=== PATIENT | female | born 1960 | race Caucasian/White ===

== ENCOUNTER 2018-09-27 18:14 | Inpatient (IN) | payer OTHER ==
[~2018-09-27] VITALS: Ht 160 cm; Wt 70.8 kg
[~2018-09-27 18:14] MED LIST: ETOMIDATE 2 MG/ML 10 ML INJ IV ONE; SUCCINYLCHOLINE CHLORIDE 20 MG/ML 10ML VIAL ONE
--- OUTSIDE RECORDS SUMMARY | 2018-09-27 18:16 | XMS REPORT | Clinical Summary ---
Author Author [facility] Organization [facility] Address Unknown Phone Unavailable Care Team Providers Care Networker Name Role Phone Asked, No Pcp PCP Unavailable Allergies Not on File Medications Not on file Active Problems Not on file Social History Date Tobacco Use Types Packs/Day Years Used Never Assessed Sex Assigned at Date Recorded Not on file Industry Job Start Date Occupation Not on file Not on file Not on file Travel End Travel History Travel Start No recent travel history available. Last Filed Vital Signs Not on file Plan of Treatment Health Maintenance Due Date Last Done Comments MMR VACCINES (1 of 1 - 01/17/1961 Standard series) VARICELLA VACCINES (1 of 01/17/1973 2 - 2-dose adolescent series) CERVICAL CANCER SCREENING 01/17/1981 BREAST CANCER SCREENING 01/17/2010 COLON CANCER SCREENING 01/17/2010 SHINGRIX VACCINE (1 of 2) 01/17/2010 INFLUENZA VACCINE 06/13/2018 HEPATITIS B VACCINES Aged Out No longer eligible based on patient's age to complete this topic IPV VACCINES Aged Out No longer eligible based on patient's age to complete this topic MENINGOCOCCAL VACCINE Aged Out No longer eligible based on patient's age to complete this topic Results Not on fileafter 09/26/2017 Advance Directives Patient has advance care planning documents on file. For more information, amanda skinner contact: Preet Nowak [address] [place] [address]
[2018-09-27 19:11] LABS: BASOPHILS # (AUTO) 0.1 (0.0-0.1); BASOPHILS % 0.6 % (0.0-1.0); EOSINOPHILS # (AUTO) 0.1 (0.0-0.4); EOSINOPHILS % 0.7 % (0.0-6.0); HEMOGLOBIN 12.7 g/dL (12.0-16.0); LYMPHOCYTES # (AUTO) 3.5 (1.0-3.2); LYMPHOCYTES % 22.5 % (18.0-39.1); MEAN CORPUSCULAR HEMOGLOBIN 28.9 pg (28-32); MEAN CORPUSCULAR HGB CONC 34.3 g/dL (31-35); MEAN CORPUSCULAR VOLUME 84.3 fL (81-99); MONOCYTES # (AUTO) 1.1 (0.2-0.8); MONOCYTES % 6.8 % (4.4-11.3); NEUTROPHILS # (AUTO) 9.6 (2.1-6.9); NEUTROPHILS % 61.5 % (38.7-80.0); PLATELET COUNT 221 x10e3/uL (140-360); RED BLOOD COUNT 4.39 x10e6/uL (3.6-5.1); RED CELL DISTRIBUTION WIDTH 14.3 % (11.7-14.4)
[2018-09-27] MEDS ORDERED: SODIUM CHLORIDE 0.9% 1000ML 1,000 ML ONE ×2 (19:12→19:45)
[2018-09-27] MEDS ORDERED: VANCOMYCIN 1GM/NS 250 ML 250 ML IV STA (19:14)
[2018-09-27 19:17] LABS: INR 0.98; PROTHROMBIN TIME 13.9 seconds (11.9-14.5)
[2018-09-27 19:19] LABS: PARTIAL THROMBOPLASTIN TIME 22.6 seconds (23.8-35.5)
[2018-09-27 19:28] LABS: ALANINE AMINOTRANSFERASE 47 IU/L (0-55); ALBUMIN 3.8 g/dL (3.5-5.0); ALBUMIN/GLOBULIN RATIO 1.1 (0.8-2.0); ALKALINE PHOSPHATASE 319 IU/L (40-150); AMYLASE 94 U/L (25-125); ANION GAP 20.4 mmol/L (8-16); BLOOD UREA NITROGEN 54 mg/dL (7-26); BUN/CREATININE RATIO 23 (6-25); CARBON DIOXIDE 22 mmol/L (22-29); CHLORIDE 101 mmol/L (98-107); CREATINE KINASE 107 IU/L (29-168); CREATININE, SERUM 2.33 mg/dL (0.57-1.11); EST GLOMERULAR FILTRATION RATE 21 ML/MIN (60-); GLUCOSE 130 mg/dL (74-118); LIPASE 64 U/L (8-78); MAGNESIUM 1.8 MG/DL (1.3-2.1); SODIUM 141 mmol/L (136-145)
--- NOTE | 2018-09-27 19:30 | Diagnostic Imaging Report ---
EXAMINATION: CHEST SINGLE (PORTABLE) INDICATION: Back pain. COMPARISON: None FINDINGS: TUBES and LINES: None. LUNGS: Lungs are well inflated. Lungs are clear. There is no evidence of pneumonia or pulmonary edema. PLEURA: No pleural effusion or pneumothorax. HEART AND MEDIASTINUM: The cardiomediastinal silhouette is unremarkable. BONES AND SOFT TISSUES: No acute osseous lesion. Soft tissues are unremarkable. UPPER ABDOMEN: No free air under the diaphragm. IMPRESSION: No acute thoracic abnormality. Signed by: Dr. Bahman Dobbins M.D. on 09/27/2018 7:27 PM
[2018-09-27 19:31] LABS: CALCIUM 16.5 mg/dL (8.4-10.2); POTASSIUM 2.4 mmol/L (3.5-5.1)
--- NOTE | 2018-09-27 19:33 | Diagnostic Imaging Report ---
EXAMINATION: Head CT without contrast. HISTORY:Altered mental status. COMPARISON:None. TECHNIQUE: Multidetector axial images were obtained from the foramen magnum to the vertex without contrast. The images were reconstructed using brain and bone algorithms. Thin section brain images were reformatted into coronal and sagittal planes. Dose modulation, iterative reconstruction, and/or weight based adjustment of the mA/kV was utilized to reduce the radiation dose to as low as reasonably achievable. Intravenous contrast: None IMAGE QUALITY: Acceptable. FINDINGS: Skull/scalp: No lytic or blastic. lesions. No surgical changes. Parenchyma: No abnormal density. No acute hemorrhage, mass or acute major vascular territorial infarct. Arteries: No density suggestive of thrombosis. Dural sinuses: No abnormal density suggestive of thrombosis. Ventricles: No hydrocephalus or displacement. Extra-axial spaces: No abnormal density. Brain volume: Normal for age. Craniocervical junction: No mass, Chiari malformation, or basilar invagination. Sella: No mass. Paranasal/mastoid sinuses: Imaged portions unremarkable. IMPRESSION: No intracranial abnormality. Signed by: Dr. Yazmin Flores M.D. on 09/27/2018 7:30 PM
[2018-09-27] MEDS ORDERED: POTASSIUM CHLORIDE 10MEQ/100ML 100 ML IV ONE (20:00)
[2018-09-27] MEDS ORDERED: MIDAZOLAM HCL 5 MG/ML VIAL IV PRN (20:00)
[2018-09-27] MEDS ORDERED: SUCCINYLCHOLINE CHLORIDE 20 MG/ML 10ML VIAL IV STA (20:06)
[2018-09-27] MEDS ORDERED: ETOMIDATE 2 MG/ML 10 ML INJ IV STA (20:06)
[2018-09-27] MEDS ORDERED: POTASSIUM CHLORIDE 20MEQ/100ML 100 ML ONE (20:09)
[2018-09-27 20:10] LABS: LYMPHOCYTES % (MANUAL) 14 % (19-48); MONOCYTES % (MANUAL) 9 % (3.4-9.0); NEUTROPHILS % (MANUAL) 68 % (40-74); NUCLEATED RED BLOOD CELLS 4; PLATELET MORPHOLOGY COMMENT FEW LARGE; RBC MORPHOLOGY COMMENT NORMAL
[2018-09-27 20:11] LABS: PLATELET ESTIMATE ADEQUATE
[2018-09-27] MEDS: CEFEPIME HCL 1 GM VIAL IV SCH (20:20)
[2018-09-27 20:36] LABS: CLARITY,URINE SL CLOUDY (CLEAR); COLOR,URINE YELLOW (YELLOW)
[2018-09-27 20:37] LABS: BILIRUBIN,URINE NEGATIVE (NEGATIVE); KETONES,URINE NEGATIVE (NEGATIVE); LEUKOCYTE ESTERASE ,URINE TRACE (NEGATIVE); NITRITE,URINE NEGATIVE (NEGATIVE); PROTEIN,URINE DIPSTICK NEGATIVE (NEGATIVE); URINE UROBILINOGEN 0.2 mg/dL (0.2 - 1)
[2018-09-27] MEDS: MIDAZOLAM HCL 25 MG in SODIUM CHLORIDE 0.9% 50ML 45 ML IV PRN (20:40)
[2018-09-27] MEDS ORDERED: METOPROLOL TARTRATE INJ 1 MG/ML VIAL IV ONE (20:40)
[2018-09-27] MEDS ORDERED: METOPROLOL TARTRATE INJ 1 MG/ML VIAL ONE (20:41)
[2018-09-27 20:47] LABS: WBC,URINE (MAN) 0-5 /HPF (0-5)
[2018-09-27 20:48] LABS: BACTERIA,URINE MANY /HPF
[2018-09-27] MEDS: FENTANYL CITRATE INJ 2,000 MCG in SODIUM CHLORIDE 0.9% 250ML 210 ML IV PRN (20:50)
[2018-09-27] MEDS ORDERED: FUROSEMIDE INJ 10 MG/ML 4 ML VIAL IV ONE (21:00)
[2018-09-27] MEDS ORDERED: CALCITONIN SALMON 400 IU/2ML VIAL SC ONE (21:15)
[2018-09-27] MEDS: ENOXAPARIN INJ 80 MG/0.8 ML SYR SC SCH (21:16)
[2018-09-27] MEDS: POTASSIUM CHLORIDE 20MEQ/100ML 100 ML IV SCH (21:16)
[2018-09-27 21:17] LABS: ABG HCO3 26 mmol/L (23-28); ABG PCO2 37 mmHg (41-51); ABG PH 7.46 (7.31-7.41); ABG PO2 81 mmHg (80-105)
--- NOTE | 2018-09-27 21:36 | Diagnostic Imaging Report ---
EXAM: CHEST SINGLE (PORTABLE), AP 1 view INDICATION: Intubated, shortness of breath COMPARISON: AP view of the chest September 27, 2018 1901 hrs FINDINGS: LINES/TUBES: Interval placement of endotracheal tube which terminates approximately 7.5 cm above the alyssa. LUNGS: Mild left lower lobe atelectasis. PLEURA: No effusions or pneumothorax. HEART AND MEDIASTINUM: Normal size and contour. BONES AND SOFT TISSUES: No acute findings. IMPRESSION: Interval placement of endotracheal tube which terminates approximately 7.5 cm above the alyssa. This finding was discussed with the ER physician September 27, 2018 at 2130 hours. Signed by: Dr. Kierra Garcia M.D. on 09/27/2018 9:33 PM
[2018-09-27 21:55] LABS: FREE THYROXINE INDEX 1.2898 (1.4-3.8); THYROID STIMULATING HORMONE 0.743 uIU/mL (0.350-4.940)
--- NOTE | 2018-09-27 22:32 | Diagnostic Imaging Report ---
EXAM: CHEST SINGLE (PORTABLE), AP 1 view INDICATION: Endotracheal tube/central line placement COMPARISON: AP view of the chest September 27, 2018 FINDINGS: LINES/TUBES: * Tip of the endotracheal tube is now 2.5 cm above the alyssa. * Interval placement of right internal jugular vein central line with its tip at the expected location of the atriocaval junction. LUNGS: Left lower lobe atelectasis. PLEURA: No effusions or pneumothorax. HEART AND MEDIASTINUM: Normal size and contour. BONES AND SOFT TISSUES: No acute findings. IMPRESSION: * Tip of the endotracheal tube is now 2.5 cm above the alyssa. * Interval placement of right internal jugular vein central line with its tip at the expected location of the atriocaval junction. No pneumothorax. Signed by: Dr. Kierra Garcia M.D. on 09/27/2018 10:28 PM
[2018-09-27] MEDS: SODIUM CHLORIDE 0.9% 1000ML 1,000 ML IV SCH (22:58)
--- OUTSIDE RECORDS SUMMARY | 2018-09-27 23:22 | XMS REPORT ---
Author Author [facility] Address Unknown Phone Unavailable Care Team Providers Care Manager Social Work Name Role Phone Afshna BURNS Unavailable Unavailable Problems This patient has no known problems. Allergies, Adverse Reactions, Alerts This patient has no known allergies or adverse reactions. Medications This patient has no known medications. Results Test Description Test Time Test Comments Text Results Atomic Results Result Comments CHEST SINGLE (PORTABLE) 2018-09-27 22:26:00 [place] [address] Patient Name: DANIELE AYERS MR #: [id number] : 1960 Age/Sex: 58/F Req #: [id number] [facility] Physician: Ordered by: TAIL SUNSHINE MD Report #: [id number] Location: ER Room/Bed: Procedure: [id number] DX/CHEST SINGLE (PORTABLE) Exam Date: Exam Time: REPORT STATUS: Signed EXAM: CHEST SINGLE (PORTABLE), AP 1 view INDICATION: Endo tracheal tube/central line placement COMPARISON: AP view of the chest September 27, 2018 FINDINGS: LINES/TUBES: * Tip of the endotracheal tube is now 2.5 cm above the alyssa. * Interval placement of right internal jugular vein central line with its tip at the expected location of the atriocaval junction. LUNGS: Left lower lobe atelectasis. PLEURA: No effusions or pneumoth orax. HEART AND MEDIASTINUM: Normal size and contour. BONES AND SOFT TISSUES: No acute findings. IMPRESSION: * Tip of the endotracheal tube is now 2.5 cm above the alyssa. * Interval placement of right internal jugular vein central line with its tip at the expected location of the atriocaval junction. No pneumothorax. Signed by: Dr. Stephanie Garcia M.D. on 09/27/2018 10:28 PM Dictated By: STEPHANIE GARCIA MD 27 Transcribed By: AUBREY on 09/27/182227 COPY TO: TALI SUNSHINE MD CHEST SINGLE (PORTABLE) 2018-09-27 21:28:00 [place] [address] Patient Name: DANIELE AYERS MR #: [id number] : 1960 Age/Sex: 58/F Req #: [id number] Adm Physician: Ordered by: TALI SUNSHINE MD Report #: [id number] Location: ER Room/Bed: Procedure: [id number] DX/CHEST SINGLE (PORTABLE) Exam Date: 09/27/18 Exam Time: 2029 REPORT STATUS: Signed EXAM: CHEST SINGLE (PORTABLE), AP 1 view INDICATION: Intubated, shortness of breath COMPARISON: AP view of the chest September 27, 2018 1901 hrs FINDINGS: LINES/TUBES: Interval placement of endotracheal tube which terminates approximately 7.5 cm above the alyssa. LUNGS: Mild left lower lobe atelectasis. PLEURA: No effusions or pneumothorax. HEART AND MEDIASTINUM: Normal size and contour. BONES AND SOFT TISSUES: No acute findings. IMPRESSION: Interval placement of endotracheal tube which terminates approximately 7.5 cm above the alyssa. This finding was discussed with the ER physician September 27, 2018 at 2130 hours. Signed by: Dr. Stephanie Garcia M.D. on 09/27/2018 9:33 PM Dictated By: STEPHANIE GARCIA MD 32 Transcribed By: AUBREY on 09/27/182132 COPY TO: TALI SUNSHINE MD CT BRAIN WO 2018-09-27 19:27:00 [place] [address] Patient Name: DANIELE AYERS MR #: [id number] : 1960 Age/Sex: 58/F Req #: [id number] Adm Physician: Ordered by: WILLIE LANGLEY PHYSICAL THERAPIST Report #: [id number] Location: ER Room/Bed: Procedure: [id number] CT/CT BRAIN WO Exam Date: Exam Time: REPORT STATUS: Signed EXAMINATION: Head CT without contrast. HISTORY:Altered mental status. COMPARISON:None. TECHNIQUE: Multidetector axial images were obtained from the foramen magnum to the vertex without contrast. The images were reconstructed using brain and bone algorithms. Thin section brain images were reformatted into coronal and sagittal planes. Dose modulation, iterative reconstruction, and/or weight based adjustment of the mA/kV was utilized to reduce the radiation dose to as low as reasonably achievable. Intravenous contrast: None IMAGE QUALITY: Acceptable. FINDINGS: Skull/scalp: No lytic or blastic. lesions. No surgical changes. Parenchyma: No abnormal density. No acute hemorrhage, mass or acute major vascular territorial infarct. Arteries: No density suggestive of thrombosis. Dural sinuses: No abnormal density suggestive of thrombosis. Ventricles: No hydrocephalus or displacement. Extra- axial spaces: No abnormal density. Brain volume: Normal for age. Craniocervical junction: No mass, Chiari malformation, or basilar invagination. Sella: No mass. Paranasal/mastoid sinuses: Imaged portions unremarkable. IMPRESSION: No intracranial abnormality. Signed by: Dr. Yazmin Flores M.D. on 09/27/2018 7:30 PM Dictated By: YAZMIN FLORES MD 29 Transcribed By: AUBREY on 09/27/181929 COPY TO: WILLIE LANGLEY NP CHEST SINGLE (PORTABLE) 2018-09-27 19:26:00 [place] [address] Patient Name: DANIELE AYERS MR #: [id number] : 1960 Age/Sex: 58/F Req #: [id number] Adm Physician: Ordered by: WILLIE LANGLEY NP Report #: [id number] Location: ER Room/Bed: Procedure: [id number] DX/CHEST SINGLE (PORTABLE) Exam Date: Exam Time: REPORT STATUS: Signed EXAMINATION: CHEST SINGLE (PORTABLE) INDICATION: Back pain. COMPARISON: None FINDINGS: TUBES and LINES: None. LUNGS: Lungs are well inflated. Lungs are clear. There is no evidence of pneumonia or pulmonary edema. PLEURA: No pleural effusion or pneumothorax. HEART AND MEDIASTINUM: The cardiomediastinal silhouette is unremarkable. BONES AND SOFT TISSUES: No acute osseous lesion. Soft tissues are unremarkable. UPPER ABDOMEN: No free air under the diaphragm. IMPRESSION: No acute thoracic abnormality. Signed by: Dr. Bahman Dobbins M.D. on 09/27/2018 7:27 PM Dictated By: BAHMAN DOBBINS MD, MD 26 Transcribed By: AUBREY on 09/27/181926 COPY TO: WILLIE LANGLEY NP
--- OUTSIDE RECORDS SUMMARY | 2018-09-27 23:22 | XMS REPORT | Clinical Summary ---
Author Author Preet [facility] Organization [facility] Address Unknown Phone Unavailable Care Team Providers Care Medical Staff Director Name Role Phone Asked, No Pcp PCP [...] more information, amanda skinner contact: Preet Nowak [address] [place] [address]
[2018-09-27 23:25] VITALS: BP 140/105
[2018-09-27 23:30] VITALS: BP 143/97
[2018-09-27 23:45] VITALS: BP 140/97
[2018-09-28] VITALS (91 sets, daily range): BP systolic 97–199; BP diastolic 66–132
[2018-09-28] MEDS: MEROPENEM 1GM 100 ML IV SCH ×2 (00:19→05:36)
--- NOTE | 2018-09-28 00:21 | Diagnostic Imaging Report ---
EXAM: CT CHEST, ABDOMEN, PELVIS with IV CONTRAST INDICATION: Low back pain, nausea and vomiting COMPARISON: None TECHNIQUE: The chest, abdomen and pelvis were scanned using a multidetector helical scanner. Coronal and sagittal reformations were obtained. Dose modulation, iterative reconstruction, and/or weight based adjustment of the mA/kV was utilized to reduce the radiation dose to as low as reasonably achievable. Routine protocol performed. IV Contrast: None Oral Contrast: None CTDIvol has been reviewed. It is below the limits set by the Radiation Protocol Committee (RPC). FINDINGS: LUNGS AND AIRWAYS: Endotracheal tube is 1 cm above the alyssa. The major airways are patent. Perihilar bronchial thickening. Bibasilar atelectasis. There are several noncalcified pulmonary nodules. Examples from series 4 include: * Right upper lung 9 mm, image 44 * Right middle lobe 7 mm, image 61 * Left lower lobe 13 mm, image 67 PLEURA: No effusions or pneumothorax HEART, MEDIASTINUM, VESSELS: The heart is within normal size limits. No abnormal pericardial effusion. No thoracic aortic aneurysm. No mediastinal mass or lymphadenopathy. Tip of a right internal jugular vein central line terminates in the distal superior vena cava. LIVER: No masses BILIARY: The gallbladder is unremarkable. No ductal dilation. SPLEEN: Calcified splenic granulomas. PANCREAS: No masses ADRENALS: No nodules KIDNEYS: No nephroureterolithiasis or hydronephrosis. GI TRACT: No distention, wall thickening or evidence of obstruction. The appendix is not identified. VESSELS: No evidence of an abdominal aortic aneurysm. PERITONEUM/RETROPERITONEUM: No free air or fluid LYMPH NODES: No lymphadenopathy REPRODUCTIVE ORGANS: Normal BLADDER: Decompressed by Hester catheter. SOFT TISSUES: Asymmetric left breast tissue and skin thickening. Poorly defined spiculated mass measuring at least 2 cm in the posterior medial aspect of the left breast with attachment to the underlying pectoralis muscle (series 2, image 29 and series 300, image 95). BONES: Diffuse predominantly lytic metastatic lesions including bilateral scapula, multiple ribs and all visualized vertebral bodies. Diffuse expansile involvement of the sternum. Extensive pelvic involvement with fracture of the left inferior pubic ramus and expansile soft tissue components with cortical breakthrough in several areas, for example left superior pubic ramus and right sacrum. Bilateral proximal femoral metastatic involvement. Mild superior endplate compression deformities of T12 and T7. IMPRESSION: Findings consistent with left breast cancer with diffuse metastatic involvement of the visualized bones and multiple pulmonary nodules. The endotracheal tube is 1 cm above the alyssa. Within the limitations of a noncontrast exam, there is no acute intra-abdominopelvic finding. Signed by: Dr. Kierra Garcia M.D. on 09/28/2018 12:18 AM
[2018-09-28] MEDS: POTASSIUM CHLORIDE 20MEQ/100ML 100 ML IV SCH ×2 (01:03→03:13)
[2018-09-28] MEDS: MIDAZOLAM HCL 25 MG in SODIUM CHLORIDE 0.9% 50ML 45 ML IV PRN ×2 (03:34→07:26)
[2018-09-28 04:39] LABS: BASOPHILS # (AUTO) 0.1 (0.0-0.1); BASOPHILS % 0.4 % (0.0-1.0); EOSINOPHILS # (AUTO) 0.1 (0.0-0.4); HEMATOCRIT 30.6 % (34.2-44.1); HEMOGLOBIN 10.2 g/dL (12.0-16.0); LYMPHOCYTES # (AUTO) 2.3 (1.0-3.2); LYMPHOCYTES % 19.7 % (18.0-39.1); MEAN CORPUSCULAR HEMOGLOBIN 28.9 pg (28-32); MEAN CORPUSCULAR HGB CONC 33.3 g/dL (31-35); MEAN CORPUSCULAR VOLUME 86.7 fL (81-99); MONOCYTES # (AUTO) 0.9 (0.2-0.8); MONOCYTES % 7.5 % (4.4-11.3); NEUTROPHILS # (AUTO) 7.6 (2.1-6.9); NEUTROPHILS % 64.5 % (38.7-80.0); PLATELET COUNT 157 x10e3/uL (140-360); RED BLOOD COUNT 3.53 x10e6/uL (3.6-5.1); RED CELL DISTRIBUTION WIDTH 14.6 % (11.7-14.4)
[2018-09-28 04:51] LABS: INR 1.08
[2018-09-28 04:52] LABS: PARTIAL THROMBOPLASTIN TIME 31.1 seconds (23.8-35.5)
[2018-09-28 05:00] LABS: ALBUMIN/GLOBULIN RATIO 1.1 (0.8-2.0); ANION GAP 18.2 mmol/L (8-16); CALCIUM 12.3 mg/dL (8.4-10.2); CREATININE, SERUM 1.98 mg/dL (0.57-1.11); MAGNESIUM 1.5 MG/DL (1.3-2.1); PHOSPHORUS 2.5 MG/DL (2.3-4.7); POTASSIUM 3.2 mmol/L (3.5-5.1)
[2018-09-28 05:34] LABS: CREATINE KINASE MB 9.8 ng/mL (0-5.0)
--- NOTE | 2018-09-28 05:43 | Diagnostic Imaging Report ---
EXAM: CHEST SINGLE (PORTABLE), AP 1 view INDICATION: Intubated COMPARISON: AP view of the chest September 27, 2018 FINDINGS: LINES/TUBES: The endotracheal tube is 1 cm above the alyssa. Stable positioning right internal jugular vein central line. LUNGS: Left lower lobe atelectasis. Pulmonary nodules seen by CT. PLEURA: No effusions or pneumothorax. HEART AND MEDIASTINUM: Normal size and contour. BONES AND SOFT TISSUES: Metastatic bone lesions better seen by CT. IMPRESSION: The endotracheal tube is 1 cm above the alyssa. Signed by: Dr. Kierra Garcia M.D. on 09/28/2018 5:39 AM
[2018-09-28] MEDS: SODIUM CHLORIDE 0.9% 1000ML 1,000 ML IV SCH ×2 (07:26→16:06)
[2018-09-28] MEDS: CEFEPIME HCL 1 GM VIAL IV SCH (07:26)
[2018-09-28] MEDS: FENTANYL CITRATE INJ 2,000 MCG in SODIUM CHLORIDE 0.9% 250ML 210 ML IV PRN (07:26)
[2018-09-28] MEDS: CALCITONIN SALMON 400 IU/2ML VIAL SC SCH (08:21)
[2018-09-28] MEDS: POTASSIUM CHLORIDE 20MEQ/15ML UDC NG SCH (08:21)
[2018-09-28] MEDS: ENOXAPARIN INJ 80 MG/0.8 ML SYR SC SCH ×2 (08:26→21:27)
[2018-09-28] MEDS ORDERED: POTASSIUM CHLORIDE 20 MEQ TAB CR PO SCH (09:00)
[2018-09-28] MEDS ORDERED: VANCOMYCIN 1GM/NS 250 ML 250 ML IV SCH (11:15)
--- NOTE | 2018-09-28 11:48 | Consultation ---
DATE OF CONSULTATION: September 28, 2018 REASON FOR CONSULTATION: Sepsis. HISTORY OF PRESENT ILLNESS: This patient is a 58-year-old white female. She is currently in the intensive care unit intubated. History was taken from her family, her daughter, her ex- and her cousin. The patient has not seen a physician for a very long time, years and years; but for the last 4 to 5 weeks, she was noted to have some back pain. She went to see a chiropractor, and she received some manipulation. She also saw an urgent care center, and she was given some muscle relaxant and pain medication, but the pain persists. She was getting progressively worse. Her ex- took her to a massage for 3 times last week to help with her back pain without any improvement. She came to the emergency room yesterday. She was short of breath. She was intubated. Infectious disease was consulted today. The patient is intubated and sedated. History was taken mainly from the chart. PAST MEDICAL HISTORY: According to the family, they deny. PAST SURGICAL HISTORY: Also denied. ALLERGIES: NKA. SOCIAL HISTORY: There is no smoking, drug abuse or alcohol use. FAMILY HISTORY: Noncontributory. REVIEW OF SYSTEMS: Could not be obtained. According to the family, just back pain. No fever. No chills. No cough. No shortness of breath or chest pain. The patient came to the emergency room. In the emergency room, she had a CAT scan of the abdomen, pelvis and chest. The CAT scan showed that she has asymmetric left breast tissue with skin being thickened. There is a poorly defined, spiculated mass measuring at least 2 cm. The bone has diffusely predominant lytic metastatic lesions including bilateral scapulae, multiple ribs and vertebral bodies. There is extensive involvement of the sternum. LABORATORY DATA: Her white count on admission was 15.5, hemoglobin 12.7, hematocrit 37. Her sodium is 149, potassium 3.9, creatinine 1.98, lactic acid 31. TSH is 0.74. PHYSICAL EXAMINATION GENERAL: She is currently intubated and sedated. VITALS: Stable currently. Temperature 97.8. HEENT: Normocephalic. NECK: Supple. CHEST: A few crackles at the bases. COR: S1 and S2. No S3 or S4. No murmur. ABDOMEN: Soft. Bowel sounds present. No tenderness. EXTREMITIES: No edema. SKIN: No rash. BREASTS: The left breast is contracted. The nipple is totally contracted. It is hard. The whole breast is hard and totally asymmetric compared to the right breast. IMPRESSION 1. Sepsis present on admission. Source is unclear. Could be early pneumonia postobstructive versus urinary tract infection versus other. I agree with blood cultures and urine cultures. Agree with cefepime 1 gram q.12. 2. Acute kidney injury/chronic kidney disease. Agree with IV fluids. Recheck CBC. Recheck chem panel. 3. The patient said, according to the record, she is allergic to vancomycin, but she did get vancomycin and there was no issue, so we will continue with vancomycin for the time being until we get the blood cultures and the urine cultures. 4. Breast cancer with metastases to be addressed later. 5. Respiratory failure. 6. Acute kidney injury. 7. Discussed with the family. The daughter gave her consent. I discussed all the issues in front of everyone. Will follow with you. Thank you for asking me to see this patient. Further recommendations depending on clinical progress. Job#: [id number]
[2018-09-28] MEDS: LINEZOLID 600 MG/D5W 300ML 300 ML IV SCH ×2 (12:09→23:48)
[2018-09-28] MEDS ORDERED: ALBUTEROL/IPRATROPIUM 3 ML NEB NEB PRN (13:00)
[2018-09-28] MEDS ORDERED: ULTRAM50 MG PO (13:18)
[2018-09-28] MEDS ORDERED: TIZANIDINE HCL4 MG PO (13:18)
[2018-09-28] MEDS ORDERED: MEDROL4 MG PO (13:18)
[2018-09-28] MEDS: AZITHROMYCIN 500MG/NS 250 ML 250 ML IV SCH (13:44)
[2018-09-28] MEDS: PANTOPRAZOLE 40 MG 10ML VIAL IV SCH (13:44)
[2018-09-28] MEDS: METHYLPREDNISOLONE SOD SUCC 125 MG/2ML VIAL IV SCH ×2 (13:45→21:34)
[2018-09-28 13:47] LABS: CREATINE KINASE MB 6.1 ng/mL (0-5.0)
--- NOTE | 2018-09-28 14:18 | Diagnostic Imaging Report ---
TECHNIQUE: Ultrasound evaluation of the abdomen. Color doppler was utilized to supplement the evaluation. Per the technologist performing the exam, the exam is limited secondary to the patient's general medical condition. HISTORY: Acute respiratory distress, elevated LFTs, elevated creatinine COMPARISON: CT of the abdomen September 27, 2018. DISCUSSION: LIVER: No focal lesion is identified. The liver measures 14 cm in the right midclavicular line. BILIARY: The gallbladder has a normal appearance, without evidence for gallstones, gallbladder wall thickening or pericholecystic fluid. The sonographic Heath's sign is reported as negative. The common bile duct measures 0.3 cm. PANCREAS: Incompletely visualized due to overlying bowel gas, but no abnormality identified involving the visualized portions of the pancreas. SPLEEN: No splenomegaly. PERITONEUM: No free fluid. KIDNEYS: Right: Measures 10 cm in length. No hydronephrosis or solid mass lesion identified. Left: Measures 12 cm in length. No hydronephrosis or solid mass lesion identified. VASCULATURE: Aorta: Visualized portions appear unremarkable. Interior vena cava: Visualized portions appear unremarkable. Portal Vein: Nondilated with hepatopedal flow. IMPRESSION: No sonographic abnormality. Signed by: Dr. Wilmer Thurman D.O., M.M.M. on 09/28/2018 2:15 PM
[2018-09-28] MEDS ORDERED: POTASSIUM CHLORIDE 20MEQ/100ML 400 ML IV ONE (14:30)
[2018-09-28] MEDS: DEXMEDETOMIDINE HCL 200 MCG in SODIUM CHLORIDE 0.9% 50ML 48 ML IV PRN ×2 (14:45→21:40)
--- NOTE | 2018-09-28 19:35 | Consultation ---
DATE OF CONSULTATION: September 28, 2018 PULMONARY MEDICINE CONSULT REFERRING PHYSICIAN: Dr. Jackson. REASON FOR REFERRAL: Respiratory failure. HISTORY: Ms. Corcoran is a pleasant 58-year-old female with respiratory failure. Patient came to the emergency room with a lot of back pain. She was having shortness of breath. An 88% oxygen saturation on room air was noted. She would get bronchitis in the past. She has had some recent weight loss. Patient was not looking very good and she was intubated. CT chest demonstrated few lung nodules with a background of some ground glass opacity, probably [id number] in size. There was additional finding of multiple bone, mainly lytic lesions and breast lesion as well. Patient in her abdomen also had maniple bony lesions. PAST MEDICAL HISTORY: Allergies, intermittent bronchitis, recent evaluation for back pain, otherwise unremarkable. MEDICATIONS: Medication per list include Medrol, tramadol, Robaxin. ALLERGIES: NO KNOWN DRUG ALLERGIES. SOCIAL HISTORY: No smoking, no drinking, no drugs. Patient works for [employer] in [employer] department. 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 However, for the last 2 weeks, she was not able to work due to pain. FAMILY HISTORY: Noncontributory. REVIEW OF SYSTEMS: Cannot get as she is intubated. PHYSICAL EXAMINATION VITAL SIGNS: Afebrile, vital signs noted per electronic record. GENERAL: Sedated, calm on ventilator. HEENT: Normocephalic, atraumatic. NECK: Supple. Throat midline. LUNGS: Bilateral air entry, mostly unremarkable. CARDIOVASCULAR: S1 and S2. No murmurs, rubs, or gallops. ABDOMINAL: Soft, nontender. EXTREMITIES: No clubbing, no cyanosis, no jose edema. INTEGUMENT: No rash or purpura. SKIN: Includes breasts with inverted nipple inwards, mild swelling breast tissue seen incoordination with nurse and daughter in the room. LABS: Creatinine come down to 1.98, BUN 45, potassium 3.2, bicarbonate 200. White count 12, hematocrit 31, and platelets 157. Coag is normal. AST 105, ALT 35, alkaline phosphatase 248. Total protein 5.7, BNP is 171. Calcium is high, it was 14 on admission. IMPRESSION AND PLAN 1. Acute respiratory failure, intubated. 2. Abnormal chest radiography, treated for bilateral, mostly left-sided pneumonitis. 3. Abnormal chest radiography, lung nodules. 4. Abnormal body radiography with multiple multi-lytic lesions throughout the body. 5. Breast abnormality, superficial as well as nodular form on examination and radiography. 6. Elevated creatinine, treated acute kidney failure. 7. Hypokalemia. 8. Hypercalcemia. 9. Chronic allergies. 10. Possible asthma. 11. Lancing pain prior to hospitalization, debility. Continue hydration to get the calcium down. Patient is already on calcitonin. Patient should become consider for bisphosphonate therapy. We will give the patient trial of weaning sedation and awakening trial. Consider spontaneous breathing trial. Patient furthermore needs sequential exams and eventually may benefit from having tissue diagnosis of all these lesions. Check ultrasound of the leg and kidney. There is consideration to why the patient became hypoxic whether it was from the pain or whether she has tumor emboli. Continue to promote hydration and good kidney function and urine output. We will follow along closely. Greater than 30 minutes in direct care and coordination on this date, multiple evaluations. Thank you very much, Dr. Jackson for this consult. Please call for questions. I had a long discussion with family to update them on situation and coordinate with nurses and respiratory therapist as well. Job#: [id number] [place]
[2018-09-28] MEDS ORDERED: DEXMEDETOMIDINE 200MCG/NS 50ML 50 ML IV ONE (21:37)
[2018-09-29] VITALS (92 sets, daily range): BP systolic 100–205; BP diastolic 66–130
[2018-09-29] MEDS ORDERED: DEXMEDETOMIDINE 200MCG/NS 50ML 50 ML IV ONE ×4 (04:16→20:06)
[2018-09-29 04:37] LABS: BASOPHILS # (AUTO) 0.1 (0.0-0.1); BASOPHILS % 0.3 % (0.0-1.0); EOSINOPHILS # (AUTO) 0.1 (0.0-0.4); EOSINOPHILS % 0.7 % (0.0-6.0); HEMATOCRIT 31.2 % (34.2-44.1); LYMPHOCYTES # (AUTO) 3.8 (1.0-3.2); MEAN CORPUSCULAR HEMOGLOBIN 29.2 pg (28-32); MEAN CORPUSCULAR HGB CONC 32.1 g/dL (31-35); MONOCYTES # (AUTO) 0.7 (0.2-0.8); MONOCYTES % 4.4 % (4.4-11.3); NEUTROPHILS # (AUTO) 10.3 (2.1-6.9); NEUTROPHILS % 65.2 % (38.7-80.0); PLATELET COUNT 110 x10e3/uL (140-360); RED BLOOD COUNT 3.43 x10e6/uL (3.6-5.1); RED CELL DISTRIBUTION WIDTH 15.4 % (11.7-14.4)
[2018-09-29 04:54] LABS: ALBUMIN 2.7 g/dL (3.5-5.0); ANION GAP 17.2 mmol/L (8-16); CALCIUM 11.9 mg/dL (8.4-10.2); CREATININE, SERUM 1.84 mg/dL (0.57-1.11)
[2018-09-29] MEDS: DEXMEDETOMIDINE HCL 200 MCG in SODIUM CHLORIDE 0.9% 50ML 48 ML IV PRN ×3 (05:00→20:20)
[2018-09-29 05:17] LABS: POTASSIUM 5.2 mmol/L (3.5-5.1)
[2018-09-29] MEDS: METHYLPREDNISOLONE SOD SUCC 125 MG/2ML VIAL IV SCH ×3 (05:26→22:13)
--- NOTE | 2018-09-29 06:24 | Diagnostic Imaging Report ---
EXAM: CHEST SINGLE (PORTABLE), AP 1 view INDICATION: Acute respiratory distress COMPARISON: AP view of the chest September 28, 2018 FINDINGS: LINES/TUBES: Stable endotracheal tube, right internal jugular vein central line and nasal/orogastric tube. LUNGS: Bibasilar atelectasis. Pulmonary nodules seen by CT. PLEURA: No effusions or pneumothorax. HEART AND MEDIASTINUM: Normal size and contour. BONES AND SOFT TISSUES: Metastatic bone lesions better seen by CT. IMPRESSION: No interval change. Signed by: Dr. Kierra Garcia M.D. on 09/29/2018 6:21 AM
[2018-09-29] MEDS: SODIUM CHLORIDE 0.9% 1000ML 1,000 ML IV SCH ×3 (07:07→22:13)
[2018-09-29] MEDS: ENOXAPARIN INJ 80 MG/0.8 ML SYR SC SCH ×2 (08:38→20:25)
[2018-09-29] MEDS: PANTOPRAZOLE 40 MG 10ML VIAL IV SCH (08:38)
[2018-09-29] MEDS: POTASSIUM CHLORIDE 20MEQ/15ML UDC NG SCH (08:38)
[2018-09-29] MEDS: CALCITONIN SALMON 400 IU/2ML VIAL SC SCH (08:38)
[2018-09-29] MEDS: CEFEPIME HCL 1 GM VIAL IV SCH (12:10)
[2018-09-29] MEDS: FENTANYL CITRATE INJ 2,000 MCG in SODIUM CHLORIDE 0.9% 250ML 210 ML IV PRN (12:11)
[2018-09-29] MEDS: LINEZOLID 600 MG/D5W 300ML 300 ML IV SCH (12:49)
[2018-09-29] MEDS: AZITHROMYCIN 500MG/NS 250 ML 250 ML IV SCH (14:24)
[2018-09-29] MEDS ORDERED: PAMIDRONATE DISODIUM 30 MG/VIAL IV ONE (15:30)
[2018-09-29] MEDS ORDERED: PAMIDRONATE DISODIUM 60 MG in SODIUM CHLORIDE 0.9% 500ML 500 ML IV ONE (16:20)
--- NOTE | 2018-09-29 16:36 | Progress Note ---
DATE: September 29, 2018 INTERNAL MEDICINE PROGRESS NOTE SUBJECTIVE: Patient is a 58-year-old female, currently on the ventilator machine with diagnosis of respiratory failure, stage IV possible breast cancer with multiple bone metastases and lung nodules also, very poor prognosis based on the CT report. Discussed the case with Dr. Farris, music education director. Family thinking about removing the life support on Monday based on whether or not she comes out of the ventilator. PHYSICAL EXAMINATION VITAL SIGNS: Blood pressure is 139/88, temperature 95.5, heart rate 73 per minute, respiratory rate 14 per minute, ox saturation 98%. HEART: Regular rhythm. Normal S1, S2 sounds. LUNGS: Clear bilaterally. ABDOMEN: Soft. LABS: On the blood work, we have BMP; sodium 148, potassium 5.2, chloride 119, CO2 of 17, BUN 47, creatinine 1.84, glucose 175. On the CBC, white blood count 15.8, hemoglobin 10.0, hematocrit 31.2, platelet count of 110,000. PT 15.0, INR 1.08, PTT 31.1. AST 94, ALT 29, total bilirubin 0.8, alkaline phosphatase 131. FINAL IMPRESSION 1. Acute respiratory failure. 2. Metastatic lesions in the bones, most likely primary might be the breast, lung nodules also. 3. Uvnwd-cp-xqhygxb renal failure. 4. Hyperkalemia. 5. Breast cancer with multiple metastases. 6. Possible sepsis. PLAN OF TREATMENT: Continue albuterol and Atrovent q.4 hours. Continue Zithromax 250 mg IV q.24 hours, Lovenox 70 mg q.12 hours, Protonix 40 mg daily, fentanyl patch to titrate, and Zyvox IV twice a day. Continue with sedation. Continue methylprednisolone 60 mg IV q.8 hours and cefepime 1 g IV q.24 hours. Case has been discussed with the family. The only next of kin are the children, who are at the bedside and they are going to wait until Monday before they make any decisions whether or not to remove the life support, but they are aware that prognosis is very poor at this point in time. Time spent, an hour and a half. Job#: [id number] LPA
[2018-09-29] MEDS ORDERED: LORAZEPAM 1 MG TAB PO ONE (16:50)
[2018-09-29 17:02] LABS: ABG HCO3 15 mmol/L (23-28); ABG PCO2 32 mmHg (41-51); ABG PH 7.27 (7.31-7.41); ABG PO2 86 mmHg (80-105)
--- NOTE | 2018-09-29 17:29 | Progress Note ---
DATE: September 29, 2018 PULMONARY MEDICINE PROGRESS NOTE SUBJECTIVE: Ms. Corcoran was seen and examined at bedside. Long conversation held with son. Furthermore, the sister participated in discussion. Sister is in health care profession who disclosed multiple advanced directives. Patient remained with agitation on attempted wean yesterday. We are still trying to modify medications at this point. Fentanyl on. Precedex on. Sputum culture . 3.3 liters in, 1.2 liters out. OBJECTIVE VITAL SIGNS: Noted per the chart record, stable. GENERAL: On sedation now. LABS: Potassium 5.2, BUN 47, creatinine 1.8. White count 16, hematocrit 31, platelets 110. Calcium 11.9, albumin 2.7, lactic acid 41. Alkaline phosphatase 231, AST 91, ALT 29, T-bili 0.8. I reviewed multiple radiology pictures with the family and with myself. IMPRESSION AND PLAN 1. Acute respiratory failure. 2. Clinically likely metastatic cancer, probably breast primary. 3. Pain. 4. Allergies. 5. Multiple lung nodules. 6. Multiple lytic bone lesions. 7. Elevated creatinine, acute versus chronic kidney failure. Echo was reviewed with mildly enlarged right ventricle, normal EF. Patient will get some alendronic acid for the high calcium and for bony pain. Patient as well will continue on ventilator at this time. We will get awakening assessment of sedation. Furthermore, we will add medicines for comfort at this time. Continue empiric antibiotics for possible pneumonia. Greater than 30 minutes in direct care today, multiple evaluation and coordination and discussion with family. Job#: [id number] ALBINO
[2018-09-29] MEDS: LORAZEPAM 1 MG TAB PO SCH (22:13)
[2018-09-30] VITALS (94 sets, daily range): BP systolic 109–182; BP diastolic 71–164
[2018-09-30] MEDS: LINEZOLID 600 MG/D5W 300ML 300 ML IV SCH ×2 (00:07→13:09)
[2018-09-30] MEDS ORDERED: DEXMEDETOMIDINE 200MCG/NS 50ML 50 ML IV ONE ×4 (02:27→22:32)
[2018-09-30 04:24] LABS: BASOPHILS % 0.3 % (0.0-1.0); EOSINOPHILS % 0.1 % (0.0-6.0); HEMATOCRIT 26.9 % (34.2-44.1); HEMOGLOBIN 8.6 g/dL (12.0-16.0); LYMPHOCYTES # (AUTO) 2.1 (1.0-3.2); LYMPHOCYTES % 14.6 % (18.0-39.1); MEAN CORPUSCULAR HEMOGLOBIN 29.1 pg (28-32); MEAN CORPUSCULAR VOLUME 90.9 fL (81-99); MONOCYTES # (AUTO) 0.7 (0.2-0.8); MONOCYTES % 4.8 % (4.4-11.3); NEUTROPHILS # (AUTO) 10.5 (2.1-6.9); NEUTROPHILS % 73.5 % (38.7-80.0); PLATELET COUNT 105 x10e3/uL (140-360); RED BLOOD COUNT 2.96 x10e6/uL (3.6-5.1); RED CELL DISTRIBUTION WIDTH 15.8 % (11.7-14.4)
[2018-09-30 04:48] LABS: ALBUMIN 2.5 g/dL (3.5-5.0); ALBUMIN/GLOBULIN RATIO 0.8 (0.8-2.0); ANION GAP 15.9 mmol/L (8-16); CALCIUM 10.9 mg/dL (8.4-10.2); CREATININE, SERUM 1.71 mg/dL (0.57-1.11); MAGNESIUM 1.5 MG/DL (1.3-2.1); PHOSPHORUS 2.7 MG/DL (2.3-4.7); POTASSIUM 3.9 mmol/L (3.5-5.1)
--- NOTE | 2018-09-30 06:13 | Diagnostic Imaging Report ---
EXAM: CHEST SINGLE (PORTABLE), AP 1 view INDICATION: Respiratory failure COMPARISON: AP view of the chest September 29, 2018 FINDINGS: LINES/TUBES: Stable endotracheal tube, right internal jugular vein central line and nasal/orogastric tube. LUNGS: Bibasilar atelectasis. Pulmonary nodules seen by CT. PLEURA: No effusions or pneumothorax. HEART AND MEDIASTINUM: Normal size and contour. BONES AND SOFT TISSUES: Metastatic bone lesions better seen by CT. IMPRESSION: No interval change. Signed by: Dr. Kierra Garcia M.D. on 09/30/2018 6:10 AM
[2018-09-30] MEDS: METHYLPREDNISOLONE SOD SUCC 125 MG/2ML VIAL IV SCH ×3 (06:25→21:18)
[2018-09-30] MEDS: FENTANYL CITRATE INJ 2,000 MCG in SODIUM CHLORIDE 0.9% 250ML 210 ML IV PRN (06:45)
[2018-09-30] MEDS: ENOXAPARIN INJ 80 MG/0.8 ML SYR SC SCH ×2 (08:53→19:34)
[2018-09-30] MEDS: PANTOPRAZOLE 40 MG 10ML VIAL IV SCH (08:53)
[2018-09-30] MEDS: CALCITONIN SALMON 400 IU/2ML VIAL SC SCH (08:53)
[2018-09-30] MEDS: LORAZEPAM 1 MG TAB PO SCH ×2 (08:53→21:18)
[2018-09-30] MEDS: SODIUM CHLORIDE 0.9% 1000ML 1,000 ML IV SCH ×2 (08:53→19:31)
[2018-09-30] MEDS: POTASSIUM CHLORIDE 20MEQ/15ML UDC NG SCH (09:00)
[2018-09-30] MEDS: CEFEPIME HCL 1 GM VIAL IV SCH (11:36)
[2018-09-30] MEDS ORDERED: DEXMEDETOMIDINE 200MCG/NS 50ML 100 ML IV ONE (13:15)
--- NOTE | 2018-09-30 13:38 | Progress Note ---
DATE: September 30, 2018 INTERNAL MEDICINE PROGRESS NOTE SUBJECTIVE: The patient is still on the ventilator. I discussed the case with her son, which he is a next of kin. They are planning to remove her from the ventilator and put her on comfort care tomorrow given the very poor prognosis with metastatic breast cancer. PHYSICAL EXAM VITAL SIGNS: Blood pressure 125/81, temperature 98.6, heart rate 94 per minute, respiratory rate 20 per minute, ox saturation 100%. HEART: Regular rhythm. Normal S1, S2 sounds. LUNGS: Clear bilaterally. ABDOMEN: Soft. LABS: On the BMP; sodium 149, potassium 3.9, chloride 121, CO2 of 16, BUN 48, creatinine 1.01, glucose 199. On the CBC; white blood count 14.2, hemoglobin 8.6, hematocrit 26.9, platelet count 105,000. PT 15.0, INR 1.08, PTT 31.1. AST 17, ALT 24, total bilirubin 0.7, alkaline phosphatase 204. FINAL IMPRESSION 1. Acute respiratory failure, on ventilator support. 2. Hypercalcemia. 3. Qebwb-iw-vhvmads renal insufficiency. 4. Breast cancer with metastatic lesions. PLAN OF TREATMENT: Continue ventilator support. Continue albuterol and Atrovent q.4 hours, fentanyl drip, Zyvox 600 mg IV twice a day, Zithromax 250 mg IV once a day, Lovenox 70 mg subcutaneous q.12 hours for DVT prophylaxis, Protonix 40 mg daily, calcitonin 400 units daily, cefepime 1 gram IV once a day, sodium chloride 100 mL an hour, potassium chloride 40 mEq daily, which we are going to stop, lorazepam 1 mg twice a day, Solu-Medrol 60 mg IV q.8 hours. Prognosis is grim due to the fact that she has stage IV breast cancer with metastatic lesions. Family, which is a son and the daughter, are very aware of that. They understand the poor prognosis and they are going to decide tomorrow removing the life support and then proceed under comfort care. Notes from etl consultant has been reviewed. Blood work has been reviewed. Time spent 55 minutes. Job#: [id number] [facility]
[2018-09-30] MEDS: AZITHROMYCIN 500MG/NS 250 ML 250 ML IV SCH (13:39)
[2018-09-30] MEDS: DEXMEDETOMIDINE 200MCG/NS 50ML 50 ML IV PRN ×4 (15:49→23:00)
--- NOTE | 2018-09-30 15:56 | Progress Note ---
DATE: September 30, 2018 PULMONARY MEDICINE PROGRESS NOTE SUBJECTIVE: Ms. Corcoran was seen and examined at bedside. She is on NS at 100 per hour. Heart rate strangely goes from 80 to 150. Fentanyl 150 per hour. Precedex 1 mcg per kg per minute. Jevity tolerated so far 40 mL per hour. Chest x-ray with stable findings. Urine output slightly low 125 mL over 7 hours. Conversation with family ensued. They were favoring full palliation, and they will keep making arrangements. REVIEW OF SYSTEMS: Cannot get as she is intubated. OBJECTIVE VITAL SIGNS: Afebrile. Vital signs noted per electronic record. GENERAL: No distress, on heavy sedation. HEENT: Normocephalic, atraumatic. NECK: Supple. Throat midline. LUNGS: Bilateral air entry, rare rhonchi. CARDIOVASCULAR: S1 and S2. No murmurs, rubs, or gallops. ABDOMEN: Soft, nontender. EXTREMITIES: No clubbing, no cyanosis. There is no edema. INTEGUMENT: No rash or purpura. LABS: Potassium 2.9, creatinine 1.7. White count 14. Albumin 2.5, calcium 10.9. IMPRESSION AND PLAN 1. Acute respiratory failure, intubated. 2. Breast mass, suspected breast cancer. 3. Multiple bony osteolytic and other lesions suspicious for metastatic breast cancer. 4. Moderate protein malnutrition. 5. Critical hypercalcemia, improved. 6. Decreased urine output, possible early acute kidney injury. 7. Pneumonia. Continue intubated state. Patient remains in critical condition. Continue medicines for comfort. Patient had a little bit extra fluid today given the low urine output, and we will consider the need for diuretics. Consideration to extubate if family becomes convinced, they want to do 100% palliation. Job#: [id number] LPA
[2018-10-01] VITALS (54 sets, daily range): BP systolic 106–204; BP diastolic 72–120
[2018-10-01] MEDS: LINEZOLID 600 MG/D5W 300ML 300 ML IV SCH ×2 (00:27→11:53)
[2018-10-01] MEDS: FENTANYL CITRATE INJ 2,000 MCG in SODIUM CHLORIDE 0.9% 250ML 210 ML IV PRN ×2 (01:17→10:57)
[2018-10-01] MEDS ORDERED: DEXMEDETOMIDINE 200MCG/NS 50ML 50 ML IV ONE ×2 (01:27→04:30)
[2018-10-01] MEDS: DEXMEDETOMIDINE 200MCG/NS 50ML 50 ML IV PRN ×2 (01:45→05:41)
[2018-10-01 04:36] LABS: BASOPHILS # (AUTO) 0.1 (0.0-0.1); BASOPHILS % 0.4 % (0.0-1.0); EOSINOPHILS % 0.1 % (0.0-6.0); HEMATOCRIT 25.3 % (34.2-44.1); HEMOGLOBIN 8.1 g/dL (12.0-16.0); LYMPHOCYTES # (AUTO) 1.6 (1.0-3.2); LYMPHOCYTES % 12.7 % (18.0-39.1); MEAN CORPUSCULAR HEMOGLOBIN 29.5 pg (28-32); MONOCYTES # (AUTO) 0.8 (0.2-0.8); MONOCYTES % 6.5 % (4.4-11.3); NEUTROPHILS # (AUTO) 9.2 (2.1-6.9); NEUTROPHILS % 72.9 % (38.7-80.0); PLATELET COUNT 71 x10e3/uL (140-360); RED BLOOD COUNT 2.75 x10e6/uL (3.6-5.1); RED CELL DISTRIBUTION WIDTH 16.8 % (11.7-14.4)
[2018-10-01] MEDS: SODIUM CHLORIDE 0.9% 1000ML 1,000 ML IV SCH ×2 (05:40→14:55)
[2018-10-01] MEDS: METHYLPREDNISOLONE SOD SUCC 125 MG/2ML VIAL IV SCH ×2 (05:40→14:00)
[2018-10-01 07:09] LABS: BAND NEUTROPHILS % (MANUAL) 1 %; LYMPHOCYTES % (MANUAL) 14 % (19-48); MONOCYTES % (MANUAL) 4 % (3.4-9.0); NEUTROPHILS % (MANUAL) 81 % (40-74); NUCLEATED RED BLOOD CELLS 5
[2018-10-01 07:10] LABS: ANISOCYTOSIS SLIGHT; HYPOCHROMASIA SLIGHT; PLATELET ESTIMATE SLIGHTLY DECREASED; PLATELET MORPHOLOGY COMMENT NORMAL; RBC MORPHOLOGY COMMENT NORMAL
[2018-10-01 07:12] LABS: POIKILOCYTOSIS SLIGHT
[2018-10-01] MEDS: PANTOPRAZOLE 40 MG 10ML VIAL IV SCH (08:26)
[2018-10-01] MEDS: ENOXAPARIN INJ 80 MG/0.8 ML SYR SC SCH (08:26)
[2018-10-01] MEDS: LORAZEPAM 1 MG TAB PO SCH (08:26)
[2018-10-01] MEDS: CALCITONIN SALMON 400 IU/2ML VIAL SC SCH (09:00)
[2018-10-01] MEDS: CEFEPIME HCL 1 GM VIAL IV SCH (11:30)
[2018-10-01] MEDS: AZITHROMYCIN 500MG/NS 250 ML 250 ML IV SCH (12:17)
[2018-10-01] MEDS: MORPHINE SULFATE 2 MG/ML SYR IV PRN ×3 (13:11→17:01)
[2018-10-01] MEDS ORDERED: SCOPOLAMINE 1.5 MG PATCH TOP SCH (13:15)
[2018-10-01] MEDS ORDERED: SCOPOLAMINE 1.5 MG PATCH ONE (13:17)
--- NOTE | 2018-10-01 13:48 | Progress Note ---
DATE: NO DICTATION, LENGTH 14 SECONDS. Job#: [id number] MH
--- NOTE | 2018-10-01 13:54 | Progress Note ---
DATE: October 01, 2018 PULMONARY MEDICINE PROGRESS NOTE SUBJECTIVE: Ms. Corcoran was seen and examined at bedside. She continues to have intubated state. Family is gathering as they anticipate possible extubation today. The daughter was present, the son was present. The ohnqrq-[id number] who is a lead nurse in her pediatric unit was present and other family. They are all convinced that this is the right decision based on previous discussion they had with the patient. Everyone is in agreement to continue to pursue palliative extubation. This occurred slightly later. The patient was seen spontaneously breathing with some gurgling sounds. REVIEW OF SYSTEMS: No headaches. No ability to get significant review of systems, but no perceived pain. EXAM VITAL SIGNS: Noted. Per electronic record. LUNGS: Bilateral air entry. Rare rhonchi. IMPRESSION AND PLAN 1. Acute respiratory failure, intubated and later extubated. 2. Breast mass. 3. Multiple bone lytic/plastic lesions highly suspicious for metastatic breast cancer. 4. Acute kidney failure, probably hypercalcemic calcinosis. 5. Critical hypercalcemia. 6. Thrombocytopenia. 7. Anemia. 8. Possible pneumonia. In accordance with the family's interpretation of the patient's wishes, we have withdrawn the ventilator today. Continue medicines for comfort. The goal is comfort, although since the patient is strong, she may linger for a while. She will probably pass later. She is DNR and 100% comfort care. Will continue current treatment at this time. Job#: [id number] RANDEE
[2018-10-01] MEDS: LORAZEPAM INJ 2 MG/ML VIAL IV PRN ×2 (14:29→18:04)
--- NOTE | 2018-10-02 01:14 | Progress Note ---
DATE: October 01, 2018 PULMONARY MEDICINE PROGRESS NOTE SUBJECTIVE: Comfort care was escalated and patient eventually later during the day. Please see multiple nursing notes for more information. Job#: [id number] CQ
--- NOTE | 2018-10-31 01:22 | Discharge Summary ---
SUMMARY CHIEF COMPLAINT: Progressive congestion, cough, lethargy. FINAL DIAGNOSIS: Breast carcinoma with metastasis, widespread, lung and bone. [age]-old female known historian of back pain, brought to the ER with a 1-week history of progressive congestion, cough, and lethargy. On the date of admission, she became confused and disorientated. She had been under Workers Comp care due to back and hip pain. As she was being cared for in the emergency room, she developed some respiratory distress, requiring intubation with vent. Had a hypotensive episode. Lab studies were showing elevated lactic acid. With exam of the patient, it was noted that her left breast and nipple had radiated inward and breast was firm and hardened to touch. Chest was revealing inspiratory crackles. In ICU for care regarding progressive shortness of breath, cough, septic shock, pneumonia, respiratory failure. Patient will continue on vent management. Will begin IV antibiotics, IV fluids. Requesting pulmonary follow and an infectious disease follow. Managing in ICU on vent with propofol drip. She was receiving meropenem antibiotic coverage along with cefepime, receiving Lovenox 70 mg q.12. IV fluids were being given. Calcitonin was being given. Laboratory studies were showing a potassium of 3.2, BUN 45, creatinine 1.98, glucose 97. CBC: White cell count 11,700, hemoglobin was at 10.2. The patient was now being reviewed by Dr. Naik from an infectious disease standpoint. Patient was undergoing further x-rays, further diagnostic studies. The antibiotics were adjusted to Zyvox, cefepime, and Zithromax. With radiology follow, concern was for breast cancer with mets. Followup potassium was 5.2, followup white cell count was 15,800. Had been started on methylprednisolone 80 mg q.8. Further potassium was 3.9, hemoglobin dropped to 8.6. On September 30, white cell count was 14,200. Agreement was made for hospice coverage. Her diet was adjusted to a tube feed diet. She was being made as comfortable as possible. She was given medications for agitation. Chest x-ray followups were showing no significant changes; and following discussions with the family, they wished to withdraw medical care. Arrangements were made to disconnect the vent per family's request. Noted that she was suffering from widespread mets, lung and bones. Final hemoglobin dropped to 8.1, white cell count was 12,000. On October 01, 2018 at 2052 hours, ER physician was asked to see the patient. Noted by the ER physician that the patient was noted to have terminal breast CA, DNR status. There were no heart sounds, no pulses, no spontaneous respiration, no response to painful stimuli. Pupils were fixed and dilated. Was pronounced at 2050 hours. I was made aware of the patient's demise by the nursing warehouse supervisor. Dictated By: BOYD Recio Job#: [id number]
== END 2018-10-01 20:50 | disposition expired | DRG 871 ==
LOC: ER 18:14 → ERHOLD 21:02 → ICU 23:43
PROC: 02HV33Z Insertion of Infusion Device into Superior Vena Cava, Percutaneous Approach (ICD-10-PCS; principal; 2018-09-27)
PROC: 5A1945Z Respiratory Ventilation, 24-96 Consecutive Hours (ICD-10-PCS; 2018-09-27)
PROC: 0BH17EZ Insertion of Endotracheal Airway into Trachea, Via Natural or Artificial Opening (ICD-10-PCS; 2018-09-27)
DX: A41.9 Sepsis, unspecified organism (principal); J96.00 Acute respiratory failure, unspecified whether with hypoxia or hypercapnia; J18.9 Pneumonia, unspecified organism; R65.21 Severe sepsis with septic shock; N17.9 Acute kidney failure, unspecified; C79.51 Secondary malignant neoplasm of bone; C78.02 Secondary malignant neoplasm of left lung; C78.01 Secondary malignant neoplasm of right lung; Z51.5 Encounter for palliative care; Z66 Do not resuscitate; D63.8 Anemia in other chronic diseases classified elsewhere; N18.9 Chronic kidney disease, unspecified; E87.6 Hypokalemia; E83.51 Hypocalcemia; R53.81 Other malaise; C50.912 Malignant neoplasm of unspecified site of left female breast
CPT/HCPCS: 31500; 36415; 36555; 36600; 51700; 70450; 71045; 71250; 74176; 76700; 80053; 81001; 82150; 82330; 82550; 82553; 82805; 83605; 83690; 83735; 83880; 84100; 84132; 84436; 84443; 84479; 84484; 84702; 85025; 85610; 85730; 87070; 87205; 93005; 93306; 93970; 94002; 94003; 99285; J0330; J0456; J0692; J1650; J1940; J2020; J2060; J2250; J2270; J2430; J2930; J3370; J3480; J7030; J7040; J7050